=== PATIENT | female | born 1980 | race Hispanic/Latino ===

== ENCOUNTER 2022-07-10 10:12 | Emergency (ER) | payer BC, OTHER ==
--- OUTSIDE RECORDS SUMMARY | 2022-07-10 10:17 | XMS REPORT | Continuity of Care Document ---
:[address] [facility] t Address [address] [place] [address] Care Team Providers Name Role Phone DOCTOR UNASSIGNED, NO NAME Primary Care Physician Unavailabl e Joelle Duffy Attending Clinician Unavailable Joelle Duffy Attending Clinician Unavailable Lab, Adc Fam Pob I Attending Clinician Unavailable Ellen Ware Attending Clinician ELLEN TIPTON Attending Clinician Unavailable Doctor Unassigned, [place] Attending Clinician Unavailable Pob1, Acute Care Clinic Attending Clinician Unavailable Joelle Duffy Admitting Clinician Unavailable Payers Payer Name Policy Type Policy Number Effective Date Expiration Date S [facility] [id number] 2019 00:00:00 [facility] [id number] 2016 PPO 00:00:00 Problems Condition Condition Condition Status Onset Resolution Last Treating Co mments Source Name Details Category Date Date Treatment Clinician Date No known No known Disease Metho di active active st problems problems Hospit [facility] l Allergies, Adverse Reactions, Alerts Allergy Allergy Status Severity Reaction(s) Onset Inactive Treating Comm ents Source Name Type Date Date Clinician No Known DA Active U 2019-06 [facility] - Allergie 00:00: s 00 Unable DA Active U 2019-06 [facility] to 07-08 Assess 00:00: 00 No Known DA Active U 2019-06 [facility] 1-16 Allergie 00:00: s 00 NO KNOWN Drug Active Univers ALLERGIE Class [facility] [place] [facility] Family History Family Member Diagnosis Comments Start Date Stop Date Source Natural father Diabetes [facility] Natural [facility] Maternal grandfather St[facility] mother Cancer [facility] Natural mother Diabetes [facility] Social History Social Habit Start Date Stop Date Quantity Comments Source Exposure to Yes [facility] SARS-CoV-2 (event) [facility] Tobacco use and 2020-01-25 2020-01-25 Never used [facility] exposure 00:00:00 00:00:00 Medical Branch Alcohol intake 2019-07-05 2019-07-05 .71 /d [facility] 00:00:00 00:00:00 Alcohol Comment 2017-05-20 2017-05-20 socially [facility] 00:00:00 00:00:00 Medical Branch Sex Ass[birth year] At [birth year] [facility] 00:00:00 00:00:00 Smoking Status Start Date Stop Date Source Never smoker [facility] Medications Ordered Filled Start Stop Current Ordering Indication Dosage Frequency Signature Comments Components Source Medication Medication Date Date Medication? Clinician (SIG) Name Name bromphenira 2019- No [id number] 5mL Take 5 mL Univers mine-pseudo 01-24 by mouth 4 i ty of ephedrine-D 00:00: 04:59 (four) Gavin as M (BROMFED 00 :00 times Medical DM) 2-30-10 daily as Bran ch mg/5 mL needed for syrup Congestion /Allergies or Cough for up to 10 days. bromphenira 2019- No [id number] 5mL Take 5 mL Univers mine-pseudo 01-24 by mouth 4 i ty of ephedrine-D 00:00: 04:59 (four) Gavin as M (BROMFED 00 :00 times Medical DM) 2-30-10 daily as Bran ch mg/5 mL needed for syrup Congestion /Allergies or Cough for up to 10 days. bromphenira 2019- No [id number] 5mL Take 5 mL Univers mine-pseudo 01-24 by mouth 4 i ty of ephedrine-D 00:00: 04:59 (four) Gavin as M (BROMFED 00 :00 times Medical DM) 2-30-10 daily as Bran ch mg/5 mL needed for syrup Congestion /Allergies or Cough for up to 10 days. bromphenira 2020-0 2020- No [id number] [facility] i ty of ephedrine-D 00:00: 04:59 (four) Gavin as M (BROMFED 00 :00 times Medical DM) 2-30-10 daily as Bran ch mg/5 mL needed for syrup Congestion /Allergies or Cough for up to 10 days. methylPREDN 2020-0 2020- No [id number] Take by [facility] [employer] 01-24 mouth ity of mg tablets 00:00: 04:59 SEE-INSTRU [place] 00 :00 CTIONS for Medical 6 days. Branch follow package directions methylPREDN 2020-0 2020- No [id number] Take by [place] [address] 01-24 mouth ity of mg tablets 00:00: 04:59 SEE-INSTRU [place] 00 :00 CTIONS for Medical 6 days. Branch follow package directions methylPREDN 2020-0 2020- No [id number] [facility] mouth ity of mg tablets 00:00: 04:59 SEE-INSTRU [place] 00 :00 CTIONS for Medical 6 days. Branch follow package directions phentermine 2020-0 Yes TAKE ONE Un molly 37.5 mg 7-30 (1) ity of tablet 00:00: TABLET(S) [place] 00 BY MOUTH Medical ONCE A Branch DAY. phentermine 2020-0 Yes TAKE ONE Un molly 37.5 mg 7-30 (1) ity of tablet 00:00: TABLET(S) [place] 00 BY MOUTH Medical ONCE A Branch DAY. phentermine 2020-0 Yes TAKE ONE Un molly 37.5 mg 7-30 (1) ity of tablet 00:00: TABLET(S) [place] 00 BY MOUTH Medical ONCE A Branch DAY. phentermine 2020-0 Yes TAKE ONE Un molly 37.5 mg 7-30 (1) ity of tablet 00:00: TABLET(S) [place] 00 BY MOUTH Medical ONCE A Branch DAY. phentermine 2020-0 Yes TAKE ONE Un molly 37.5 mg 7-30 (1) ity of tablet 00:00: TABLET(S) [place] 00 BY MOUTH Medical ONCE A Branch DAY. phentermine Yes TAKE ONE Un molly 37.5 mg 7-30 (1) ity of tablet 00:00: TABLET(S) [place] 00 BY MOUTH Medical ONCE A Branch DAY. No known No No known Metho di medications 1-[address] 16:53: s [facility] 06 l acetaminoph 2016-06 Yes TAKE ONE Un molly en-codeine 1-02 (1) TO TWO ity of 300-30 mg 00:00: (2) [place] tablet 00 TABLET(S) Medical BY MOUTH Branch EVERY FOUR HOURS NEEDED FOR PAIN. acetaminoph 2016-06 Yes TAKE ONE Un molly en-codeine 1-02 (1) TO TWO ity of 300-30 mg 00:00: (2) [place] tablet 00 TABLET(S) Medical BY MOUTH Branch EVERY FOUR HOURS NEEDED FOR PAIN. acetaminoph 2016-06 Yes TAKE ONE Un molly en-codeine 1-02 (1) TO TWO ity of 300-30 mg 00:00: (2) [place] tablet 00 TABLET(S) Medical BY MOUTH Branch EVERY FOUR HOURS NEEDED FOR PAIN. acetaminoph 2016-06 Yes TAKE ONE Un molly en-codeine 1-02 (1) TO TWO ity of 300-30 mg 00:00: (2) [place] tablet 00 TABLET(S) Medical BY MOUTH Branch EVERY FOUR HOURS NEEDED FOR PAIN. acetaminoph 2016-06 Yes TAKE ONE Un molly en-codeine 1-02 (1) TO TWO ity of 300-30 mg 00:00: (2) [place] tablet 00 TABLET(S) Medical BY MOUTH Branch EVERY FOUR HOURS NEEDED FOR PAIN. acetaminoph 2016-06 Yes TAKE ONE Un molly en-codeine 1-02 (1) TO TWO ity of 300-30 mg 00:00: (2) [place] tablet 00 TABLET(S) Medical BY MOUTH Branch EVERY FOUR HOURS NEEDED FOR PAIN. meloxicam 2016-06 Yes TAKE ONE Univ ers 15 mg 0-10 (1) ity of tablet 00:00: TABLET(S) [place] 00 BY MOUTH Medical ONCE A DAY Branch WITH FOOD. meloxicam 2016-06 Yes TAKE ONE Univ ers 15 mg 0-10 (1) ity of tablet 00:00: TABLET(S) [place] 00 BY MOUTH Medical ONCE A DAY Branch WITH FOOD. meloxicam 2016-06 Yes TAKE ONE Univ ers 15 mg 0-10 (1) ity of tablet 00:00: TABLET(S) [place] 00 BY MOUTH Medical ONCE A DAY Branch WITH FOOD. meloxicam 2016-06 Yes TAKE ONE Univ ers 15 mg 0-10 (1) ity of tablet 00:00: TABLET(S) [place] 00 BY MOUTH Medical ONCE A DAY Branch WITH FOOD. meloxicam 2016-06 Yes TAKE ONE Univ ers 15 mg 0-10 (1) ity of tablet 00:00: TABLET(S) [place] 00 BY MOUTH Medical ONCE A DAY Branch WITH FOOD. meloxicam 2016-06 Yes TAKE ONE Univ ers 15 mg 0-10 (1) ity of tablet 00:00: TABLET(S) [place] 00 BY MOUTH Medical ONCE A DAY Branch WITH FOOD. Vital Signs Vital Name Observation Time Observation Value Comments Source Systolic blood 2020-01-25 21:07:00 118 mm[facility]Hg[facility] Diastolic blood 2020-01-25 21:07:00 72 mm[Hg[facility] Heart rate 2020-01-25 21:07:00 89 /min [facility] Body temperature 2020-01-25 21:07:00 36.89 [facility] Respiratory rate 2020-01-25 21:07:00 18 /min [facility] Body height 2020-01-25 21:07:00 165.1 cm [facility] Body weight 2020-01-25 21:07:00 91.627 kg [facility] BMI 2020-01-25 21:07:00 33.61 kg/m2 [facility] Oxygen saturation in 2020-01-25 21:07:00 99 /min University Arterial blood by [facility] Pulse oximetry Branch 02 Sat by Pulse 2020-09-20 15:50:53 100 /min Oximetry BMI more than 35 2020-09-20 15:50:53 Y Body Mass Index 2020-09-20 15:50:53 35.9 Height 2020-09-20 15:50:53 165.1\S\65 Pulse Rate 2020-09-20 15:50:53 97 /min Respiratory Rate 2020-09-20 15:50:53 16 /min Respiratory Depth 2020-09-20 15:50:53 Normal /min Respiratory Effort 2020-09-20 15:50:53 Spontaneous /min Respiratory Pattern 2020-09-20 15:50:53 Normal /min Temperature 2020-09-20 15:50:53 36.5\S\97.7 Weight 2020-09-20 15:50:53 83108.951\S\3456 Weight Measurement 2020-09-20 15:50:53 Standing Scale Method BMI more than 35 2020-07-28 13:18:23 Y Body Mass Index 2020-07-28 13:18:23 35.9 Height 2020-07-28 13:18:23 165.1\S\65 Pulse Rate 2020-07-28 13:18:23 97 /min Respiratory Rate 2020-07-28 13:18:23 16 /min Respiratory Depth 2020-07-28 13:18:23 Normal /min Respiratory Effort 2020-07-28 13:18:23 Spontaneous /min Respiratory Pattern 2020-07-28 13:18:23 Normal /min Temperature 2020-07-28 13:18:23 36.5\S\97.7 Weight 2020-07-28 13:18:23 80663.951\S\3456 Weight Measurement 2020-07-28 13:18:23 Standing Scale Method 02 Sat by Pulse 2020-07-28 13:18:23 100 /min Oximetry 02 Sat by Pulse 2020-06-22 16:04:46 100 /min Oximetry BMI more than 35 2020-06-22 16:04:46 Y Body Mass Index 2020-06-22 16:04:46 35.9 Height 2020-06-22 16:04:46 165.1\S\65 Pulse Rate 2020-06-22 16:04:46 97 /min Respiratory Rate 2020-06-22 16:04:46 16 /min Respiratory Depth 2020-06-22 16:04:46 Normal /min Respiratory Effort 2020-06-22 16:04:46 Spontaneous /min Respiratory Pattern 2020-06-22 16:04:46 Normal /min Temperature 2020-06-22 16:04:46 36.5\S\97.7 Weight 2020-06-22 16:04:46 27148.951\S\3456 Weight Measurement 2020-06-22 16:04:46 Standing Scale Method 02 Sat by Pulse 2020-06-15 10:58:10 100 /min Oximetry BMI more than 35 2020-06-15 10:58:10 Y Body Mass Index 2020-06-15 10:58:10 35.9 Height 2020-06-15 10:58:10 165.1\S\65 Pulse Rate 2020-06-15 10:58:10 97 /min Respiratory Rate 2020-06-15 10:58:10 16 /min Respiratory Depth 2020-06-15 10:58:10 Normal /min Respiratory Effort 2020-06-15 10:58:10 Spontaneous /min Respiratory Pattern 2020-06-15 10:58:10 Normal /min Temperature 2020-06-15 10:58:10 36.5\S\97.7 Weight 2020-06-15 10:58:10 84941.951\S\3456 Weight Measurement 2020-06-15 10:58:10 Standing Scale Method BMI more than 35 2020-06-12 15:42:50 Y Body Mass Index 2020-06-12 15:42:50 35.9 Height 2020-06-12 15:42:50 165.1\S\65 Pulse Rate 2020-06-12 15:42:50 97 /min Respiratory Rate 2020-06-12 15:42:50 16 /min Respiratory Depth 2020-06-12 15:42:50 Normal /min Respiratory Effort 2020-06-12 15:42:50 Spontaneous /min Respiratory Pattern 2020-06-12 15:42:50 Normal /min Temperature 2020-06-12 15:42:50 36.5\S\97.7 Weight 2020-06-12 15:42:50 69522.951\S\3456 Weight Measurement 2020-06-12 15:42:50 Standing Scale Method 02 Sat by Pulse 2020-06-12 15:42:50 100 /min Oximetry Body Mass Index 2020-06-07 12:38:24 35.9 Height 2020-06-07 12:38:24 165.1\S\65 Pulse Rate 2020-06-07 12:38:24 97 /min Respiratory Rate 2020-06-07 12:38:24 16 /min Respiratory Depth 2020-06-07 12:38:24 Normal /min Respiratory Effort 2020-06-07 12:38:24 Spontaneous /min Respiratory Pattern 2020-06-07 12:38:24 Normal /min Temperature 2020-06-07 12:38:24 36.5\S\97.7 Weight 2020-06-07 12:38:24 09466.951\S\3456 Weight Measurement 2020-06-07 12:38:24 Standing Scale Method 02 Sat by Pulse 2020-06-07 12:38:23 100 /min Oximetry BMI more than 35 2020-06-07 12:38:23 Y Body Mass Index 2020-06-07 12:38:23 35.9 Height 2020-06-07 12:38:23 165.1\S\65 Pulse Rate 2020-06-07 12:38:23 97 /min Respiratory Rate 2020-06-07 12:38:23 16 /min Respiratory Depth 2020-06-07 12:38:23 Normal /min Respiratory Effort 2020-06-07 12:38:23 Spontaneous /min Respiratory Pattern 2020-06-07 12:38:23 Normal /min Temperature 2020-06-07 12:38:23 36.5\S\97.7 Weight 2020-06-07 12:38:23 39721.951\S\3456 Weight Measurement 2020-06-07 12:38:23 Standing Scale Method 02 Sat by Pulse 2020-06-07 06:38:37 100 /min Oximetry Body Mass Index 2020-06-07 06:38:37 35.9 Height 2020-06-07 06:38:37 165.1\S\65 Pulse Rate 2020-06-07 06:38:37 88 /min Respiratory Rate 2020-06-07 06:38:37 18 /min Temperature 2020-06-07 06:38:37 36.9\S\98.4 Weight 2020-06-07 06:38:37 12097.951\S\3456 Weight Measurement 2020-06-07 06:38:37 Standing Scale Method 02 Sat by Pulse 2020-06-07 06:23:19 100 /min Oximetry Body Mass Index 2020-06-07 06:23:19 35.9 Height 2020-06-07 06:23:19 165.1\S\65 Pulse Rate 2020-06-07 06:23:19 88 /min Respiratory Rate 2020-06-07 06:23:19 18 /min Temperature 2020-06-07 06:23:19 36.9\S\98.4 Weight 2020-06-07 06:23:19 28522.951\S\3456 Weight Measurement 2020-06-07 06:23:19 Standing Scale Method WEIGHT 2020-06-07 06:21:00 97.004164 kg HEIGHT 2020-06-07 06:21:00 165.1 cm Body Mass Index 2020-06-06 08:12:29 34.6 Height 2020-06-06 08:12:29 165.1\S\65 Weight 2020-06-06 08:12:29 92345.213\S\3328 WEIGHT 2020-05-30 12:22:00 94.916898 kg HEIGHT 2020-05-30 12:22:00 165.1 cm Procedures This patient has no known procedures. Plan of Care Planned Activity Planned Date Details Comments Source Future Scheduled 2022-06-09 COVID-19 VACCINE [facility] Test 18:49:40 (#1) [code = COVID-19 VACCINE (#1)] Future Scheduled 2022-06-09 Hepatitis C [facility] Test 18:49:40 screening (procedure) [code = 219748365] Future Scheduled 2022-06-09 Screening for [facility] Test 18:49:40 malignant neoplasm of cervix (procedure) [code = 829812578] Future Scheduled 2022-06-09 BREAST CANCER [facility] Test 18:49:40 SCREENING [code = BREAST CANCER SCREENING] Future Scheduled 2022-06-09 INFLUENZA VACCINE [facility] Test 18:49:40 [code = INFLUENZA VACCINE] Encounters Start End Encounter Admission Attending Care Care Encounter Source Date/Time Date/Time Type Type Clinicians Facility Department ID 2020-05-09 Inpatient Elective Clive [facility] [id number] [facility] 10:45:00 [facility] 65 2020-05-09 Inpatient Elective Clive [facility] [id number] [facility] 08:00:00 [facility] 2020-04-27 Inpatient Clive [facility] [id number] S t. 15:10:00 [facility] 2020-09-09 2020-09-09 Outpatient [facility] [id number] Univers 13:45:00 13:45:00 ity [facility] 2020-08-19 2020-08-19 Outpatient [facility] [id number] Univers 13:10:00 13:10:00 ity [facility] 2020-06-07 2020-06-07 Outpatient Wijay, [facility] [id number] [facility] 09:15:00 09:15:00 Nandhika 87 2020-06-07 2020-06-07 Outpatient [facility] [id number] [facility] 05:03:00 05:03:00 87 2020-06-07 2020-06-07 Outpatient Wijay, [facility] [id number] [facility] 03:00:00 03:00:00 Nandhika 37 2020-06-02 2020-06-02 Laboratory Lab, Adc Fam Pob I [facility] [id number] [facility] 09:01:19 09:21:19 [facility] [id number] [facility] [id number] Gavin as Professio [phone] [address] Office [address] One 2020-06-02 2020-06-02 Outpatient Bree ERWINTAHIR [facility] [id number] Univers 09:00:00 09:00:00 [facility] 2020-05-30 2020-05-30 Outpatient Elective Wijay, [facility] [id number] [facility] 11:57:00 11:57:00 Nandhika 04 2020-05-30 2020-05-30 Outpatient [facility] [id number] [facility] 11:57:00 11:57:00 04 2020-05-01 2020-05-01 Outpatient Elective Wijay, [facility] [id number] [facility] 13:21:00 13:21:00 Nandhika 21 2020-05-01 2020-05-01 Outpatient [facility] [id number] [facility] 13:21:00 13:21:00 21 2020-02-01 2020-02-01 Telephone Doctor ENEDELIA [id number] Univers 00:00:00 00:00:00 Unassigned, POLLY [id number] ity of [place] [facility] [id number] Gavin as [phone] [address] 2020-01-28 2020-01-28 Laboratory Lab, Adc Fam Pob I [facility] 1.2. [id number] Univers 15:52:01 16:12:01 Only Ellen Tipton gamigo [id number] ity of [place] [id number] Gavin as Professio [phone] [address] Office [address] [facility] 2020-01-28 2020-01-28 Outpatient R [facility] [id number] Univers 15:40:00 15:40:00 ity of [facility] 2020-01-25 2020-01-25 Urgent Pob1, Acute Care Clinic [facility] [id number]. [id number] Univers 15:54:24 16:14:24 Care Ellen Tipton gamigo [id number] ity of [place] [id number] Gavin as Professio [phone] [address] Office [address] [facility] 2020-01-25 2020-01-25 Outpatient R NEGRA [facility] [id number] Univers 16:00:00 16:00:00 ELLEN ity [facility] 2020-01-25 2020-01-25 Letter Doctor ENEDELIA [id number] Univers 00:00:00 00:00:00 (Out) Unassigned, POLLY [id number] ity of [place] [facility] [id number] Gavin as [phone] [address] 2016-11-19 2016-11-19 Outpatient MHIE MHIE [id number] [facility] 10:20:00 10:20:00 08 cortney Asencio 2016-11-05 2016-11-05 Outpatient MHIE MHIE [id number] [facility] 08:00:00 08:00:00 07 cortney Asencio 2016-08-14 2016-08-14 Outpatient MHIE MHIE [id number] [facility] 08:30:00 08:30:00 06 cortney Asencio 2015-09-29 2015-09-29 Outpatient KWABENA YUAN [id number] [facility] 10:00:00 10:00:00 03 cortney Asencio 2015-09-29 2015-09-29 Outpatient KWABENA YUAN [id number] [facility] 10:00:00 10:00:00 05 cortney Asencio 2015-09-20 2015-09-20 Outpatient KWABENA YUAN [id number] [facility] 13:00:00 13:00:00 04 cortney Asencio 2015-08-18 2015-08-18 Outpatient KWABENA YUAN [id number] [facility] 10:00:00 10:00:00 02 cortney Asencio 2015-06-20 2015-06-20 Outpatient KWABENA YUAN [id number] [facility] 14:00:00 14:00:00 cortney Asencio Results Test Description Test Time Test Comments Results Result Comments Source HCG, Urine Qual (LAB) 2020-06-07 06:30:00 Test Item Value Reference Range Interpretation Comme nts HCG, Urine, Qual (test code = HCGU) Negative Negative Complete Blood Count Auto [id number] 12:25:00 Test Item Value Reference Range Interpretation Comments White Blood Count (test code = 5.5 x10 3/uL 4.4-10.5 N WBCT) Red Blood Count (test code = 4.66 x10 6/uL 3.75-5.20 N RBC) Hemoglobin (test code = HGBT) 10.8 g/dL 12.2-14.8 L Hematocrit (test code = HCTT) 37.2 % 36.5-44.4 N Mean Corpuscular Volume (test 79.80 fL 80.00-100.00 L code = MCV) Mean Corpuscular Hemoglobin 23.2 pg 27.0-32.5 L (test code = MCH) Mean Corpuscular HGB Conc 29.00 g/dL 32.00-37.50 L (test code = MCHC) RDW Coefficient of Variation 24.4 % 11.5-14.5 H (test code = RDWCV) Platelet Count (test code = 363.0 x10 3/uL 140.0-440.0 N PLTT) Mean Platelet Volume (test 11.1 fL code = MPV) Immature Granulocytes % (Auto) 0.4 % 0.0-5.0 N (test code = IMMGRAN%) Neutrophils % (Auto) (test 65.3 % 36.0-70.0 N code = NE%) Lymphocytes % (Auto) (test 24.5 % 12.0-44.0 N code = LY%) Monocytes % (Auto) (test code 8.4 % 0.0-11.0 N = MO%) Eosinophils % (Auto) (test 0.7 % 0.0-7.0 N code = EO%) Basophils % (Auto) (test code 0.7 % 0.0-2.0 N = BA%) Immature Granulocytes # (Auto) 0.02 x10 3/uL (test code = IMMGRAN#) Neutrophils # (Auto) (test 3.6 x10 3/uL 1.6-7.4 N code = NE#) Lymphocytes # (Auto) (test 1.34 x10 3/uL 0.50-4.60 N code = LY#) Monocytes # (Auto) (test code 0.46 x10 3/uL 0.00-1.20 N = MO#) Eosinophils # (Auto) (test 0.04 x10 3/uL 0.00-0.74 N code = EO#) Basophils # (Auto) (test code 0.04 x10 3/uL 0.00-0.21 N = BA#) nRBC Abs (test code = NRBCA) 0 nRBC Pct (test code = NRBCP) 0 % Basic Metabolic [id number] 12:25:00 Test Item Value Reference Range Interpretation Comments SODIUM (test code = NA) 139.0 mmol/L 136.0-145.0 N Potassium,K (test code = K) 3.8 mmol/L 3.0-5.1 N Chloride (test code = CL) 106 mmol/L 98-107 N Carbon Dioxide (test code = 28 mmol/L 20-31 N CO2) Anion Gap (test code = GAP) 5 mmol/L 5-15 N Blood Urea Nitrogen (test code 9 mg/dL 9-23 N = BUN) Creatinine (test code = CREATT) 0.63 mg/dL 0.55-1.02 N Creatinine Clr Calc Pharmacy 134.81 mL/min (test code = CRCLPHA) Estimated GFR ( Marielle > 60 mL/min/1.73m2 (test code = EGFRAA) Estimated GFR (Non Afr Marielle > 60 mL/min/1.73m2 (test code = EGFRNAA) BUN/Creatinine Ratio (test code 14 ratio 10-20 N = BCRATIO) Glucose (test code = GLU) 89 mg/dL 74-106 N Osmolality,Calculated (test 285.2 code = OSMOC) Calcium (test code = CA) 9.0 mg/dL 8.3-10.6 N Complete Blood Count Auto [id number] 14:15:00 Test Item Value Reference Range Interpretation Comments White Blood Count (test code = 9.2 x10 3/uL 4.4-10.5 N WBCT) Red Blood Count (test code = 4.52 x10 6/uL 3.75-5.20 N RBC) Hemoglobin (test code = HGBT) 9.6 g/dL 12.2-14.8 L Hematocrit (test code = HCTT) 33.2 % 36.5-44.4 L Mean Corpuscular Volume (test 73.50 fL 80.00-100.00 L code = MCV) Mean Corpuscular Hemoglobin 21.2 pg 27.0-32.5 L (test code = MCH) Mean Corpuscular HGB Conc 28.90 g/dL 32.00-37.50 L (test code = MCHC) RDW Coefficient of Variation 19.5 % 11.5-14.5 H (test code = RDWCV) Platelet Count (test code = 484.0 x10 3/uL 140.0-440.0 H PLTT) Mean Platelet Volume (test 11.8 fL code = MPV) Immature Granulocytes % (Auto) 0.4 % 0.0-5.0 N (test code = IMMGRAN%) Neutrophils % (Auto) (test 71.7 % 36.0-70.0 H code = NE%) Lymphocytes % (Auto) (test 19.2 % 12.0-44.0 N code = LY%) Monocytes % (Auto) (test code 7.1 % 0.0-11.0 N = MO%) Eosinophils % (Auto) (test 0.8 % 0.0-7.0 N code = EO%) Basophils % (Auto) (test code 0.8 % 0.0-2.0 N = BA%) Immature Granulocytes # (Auto) 0.04 x10 3/uL (test code = IMMGRAN#) Neutrophils # (Auto) (test 6.6 x10 3/uL 1.6-7.4 N code = NE#) Lymphocytes # (Auto) (test 1.76 x10 3/uL 0.50-4.60 N code = LY#) Monocytes # (Auto) (test code 0.65 x10 3/uL 0.00-1.20 N = MO#) Eosinophils # (Auto) (test 0.07 x10 3/uL 0.00-0.74 N code = EO#) Basophils # (Auto) (test code 0.07 x10 3/uL 0.00-0.21 N = BA#) Basic Metabolic [id number] 14:15:00 Test Item Value Reference Range Interpretation Comments SODIUM (test code = NA) 139.0 mmol/L 136.0-145.0 N Potassium,K (test code = K) 4.1 mmol/L 3.0-5.1 N Chloride (test code = CL) 106 mmol/L 98-107 N Carbon Dioxide (test code = 27 mmol/L 20-31 N CO2) Anion Gap (test code = GAP) 6 mmol/L 5-15 N Blood Urea Nitrogen (test code 16 mg/dL 9-23 N = BUN) Creatinine (test code = CREATT) 0.63 mg/dL 0.55-1.02 N Creatinine Clr Calc Pharmacy 133.79 mL/min (test code = CRCLPHA) Estimated GFR ( Marielle > 60 mL/min/1.73m2 (test code = EGFRAA) Estimated GFR (Non Afr Marielle > 60 mL/min/1.73m2 (test code = EGFRNAA) BUN/Creatinine Ratio (test code 25 ratio 10-20 H = BCRATIO) Glucose (test code = GLU) 76 mg/dL 74-106 N Osmolality,Calculated (test 287.7 code = OSMOC) Calcium (test code = CA) 8.9 mg/dL 8.3-10.6 N
[2022-07-10] MEDS ORDERED: IBUPROFEN 200 MG TAB PO ONE (11:29)
[2022-07-10] MEDS ORDERED: ACETAMINOPHEN 500 MG TAB ONE (11:32)
--- NOTE | 2022-07-10 12:05 | RAD REPORT ---
EXAM DESCRIPTION: Amadou Single View07/10/2022 11:46 am CLINICAL HISTORY: Fever COMPARISON: none FINDINGS: The lungs appear clear of acute infiltrate. The heart is normal size IMPRESSION: No acute abnormalities displayed
[2022-07-10 12:22] LABS: SARS-COV-2 RT PCR POSITIVE (NEGATIVE)
--- NOTE | 2022-07-10 12:41 | ER ---
Nurse's Notes [facility] Name: Anastacia Adorno Age: 41 yrs Sex: Female : 1980 Arrival Date: 07/10/2022 Time: 10:14 Bed 12 Private MD: Diagnosis: Coronavirus infection, unspecified Presentation: 07/10 10:56 Chief complaint: Patient states: cough, headache, body aches since yesterday , fever. iw Coronavirus screen: Client presents with at least one sign or symptom that may indicate coronavirus-19. Ebola Screen: Patient negative for fever greater than or equal to 101.5 degrees Fahrenheit, and additional compatible Ebola Virus Disease symptoms Patient denies exposure to infectious person. Patient denies travel to an Ebola-affected area in the 21 days before illness onset. No symptoms or risks identified at this time. Initial Sepsis Screen: Does the patient meet any 2 criteria? No. Patient's initial sepsis screen is negative. Does the patient have a suspected source of infection? No. Patient's initial sepsis screen is negative. Risk Assessment: Do you want to hurt yourself or someone else? Patient reports no desire to harm self or others. Onset of symptoms was July 09, 2022. 10:56 Method Of Arrival: Ambulatory iw 10:56 Acuity: DAYANA 4 iw 10:56 Acuity: DAYANA 3 iw Historical: - Allergies: 10:57 No Known Allergies; iw - Home Meds: 10:57 None [Active]; iw - PMHx: 10:58 Crohn's disease; iw - Immunization history:: Adult Immunizations unknown. - Social history:: Smoking status: unknown. Screenin:19 [facility] ED Fall Risk Assessment (Adult) History of falling in the last 3 months, jl7 including since admission No falls in past 3 months (0 pts). Abuse screen: Denies threats or abuse. Denies injuries from another. Nutritional screening: No deficits noted. Tuberculosis screening: No symptoms or risk factors identified. Vital Signs: 10:56 BP 110 / 70; Pulse 124; Resp 18; Temp 100.6; Pulse Ox 100% on R/A; Weight 68.04 kg; iw Height 5 ft. 3 in. (160.02 cm); 10:56 Body Mass Index 26.57 (68.04 kg, 160.02 cm) ED Course: 10:14 Patient arrived in ED. am2 10:17 Tyrone Rizo PA is PHCP. [facility] 10:17 Young Mendez MD is Attending Physician. [facility] 10:57 Triage completed. iw 10:57 Arm band placed on. iw 11:12 Katherine Cummings, RN is Primary Nurse. iw 11:47 Chest Single View XRAY In Process Unspecified. EDMS 13:19 Patient has correct armband on for positive identification. jl7 13:19 No provider procedures requiring assistance completed. Patient did not have IV access jl7 during this emergency room visit. Administered Medications: 11:27 Not Given (Patient Refused): Ibuprofen 600 mg PO once iw 11:34 Drug: Tylenol 1000 mg Route: PO; iw 12:15 Follow up: Response: No adverse reaction iw Medication: 13:19 VIS not applicable for this client. jl7 Outcome: 12:41 Discharge ordered by MD. m 13:19 Discharged to home ambulatory, with significant other. jl7 13:19 Condition: stable 13:19 Discharge instructions given to patient, significant other, Instructed on discharge instructions, follow up and referral plans. medication usage, Demonstrated understanding of instructions, follow-up care, medications, Prescriptions given X 2. 13:20 Patient left the ED. jl7 Signatures: Dispatcher [employer] EDMS Tyrone Rizo PA PA Katherine Washburn, RN RN Nathanael King RN RN jl7 Lakisha Haq am2 Corrections: (The following items were deleted from the chart) 10:58 10:57 PMHx: None; iw
--- NOTE | 2022-07-10 12:41 | EDPHYS ---
Physician Documentation [facility] Name: Anastacia Adorno Age: 41 yrs Sex: Female : 1980 Arrival Date: 07/10/2022 Time: 10:14 Bed 12 Private MD: ED Physician Young Mendez HPI: 07/10 12:39 This 41 yrs old Female presents to ER via Ambulatory with complaints of Cough, jmm Flu Symptoms. 12:39 The patient or guardian reports cough. Onset: The symptoms/episode began/occurred jmm gradually, 1 day(s) ago. Modifying factors: The symptoms are alleviated by nothing, the symptoms are aggravated by nothing. Associated signs and symptoms: Pertinent positives:. The patient has not experienced similar symptoms in the past. Is a 41-year-old female with history of Crohn's disease the presents emerged from with complaints of cough, shortness of breath beginning last night with fever. Denies any vomiting but states having some nausea. Denies abdominal pain. states having cough and congestion as well.. Historical: - Allergies: 10:57 No Known Allergies; iw - Home Meds: 10:57 None [Active]; iw - PMHx: 10:58 Crohn's disease; iw - Immunization history:: Adult Immunizations unknown. - Social history:: Smoking status: unknown. ROS: 12:39 Constitutional: Positive for fever. jmm 12:39 Respiratory: Positive for cough, shortness of breath. 12:39 All other systems are negative. Exam: 12:39 Constitutional: This is a well developed, well nourished patient who is awake, alert, jmm and in no acute distress. Head/Face: atraumatic. Eyes: EOMI, no conjunctival erythema appreciated 12:39 Neck: Trachea midline, Supple Chest/axilla: Normal chest wall appearance and motion. Cardiovascular: Regular rate and rhythm. No edema appreciated Respiratory: Normal respirations, no respiratory distress appreciated Abdomen/GI: Non distended Back: Normal ROM Skin: General appearance color normal MS/ Extremity: Moves all extremities, no obvious deformities appreciated, no edema noted to the lower extremities Neuro: Awake and alert Psych: Behavior is normal, Mood is normal, Patient is cooperative and pleasant 12:39 ENT: Posterior pharynx: erythema, that is moderate. Vital Signs: 10:56 BP 110 / 70; Pulse 124; Resp 18; Temp 100.6; Pulse Ox 100% on R/A; Weight 68.04 kg; iw Height 5 ft. 3 in. (160.02 cm); 10:56 Body Mass Index 26.57 (68.04 kg, 160.02 cm) iw MDM: 11:07 Patient medically screened. [facility] 12:40 Data reviewed: vital signs, nurses notes. I considered the following discharge [facility] prescriptions or medication management in the emergency department Medications were administered in the Emergency Department. See MAR. Historians other than the Patient: Spouse/Significant Other: Significant other. Counseling: I had a detailed discussion with the patient and/or guardian regarding: the historical points, exam findings, and any diagnostic results supporting the discharge/admit diagnosis, lab results, the need for outpatient follow up, to return to the emergency department if symptoms worsen or persist or if there are any questions or concerns that arise at home. 07/10 11:07 Order name: COVID-19/FLU A+B; Complete Time: 12:26 [facility] 07/10 11:07 Order name: Chest Single View XRAY; Complete Time: 12:06 [facility] Administered Medications: 11:27 Not Given (Patient Refused): Ibuprofen 600 mg PO once iw 11:34 Drug: Tylenol 1000 mg Route: PO; iw 12:15 Follow up: Response: No adverse reaction iw Disposition: 13:23 Co-signature as Attending Physician, Young Mendez MD I reviewed the patient's care rt provided by the Advanced Practice Provider and agree with the diagnosis and treatment plan. Disposition Summary: 07/10/22 12:41 Discharge Ordered Location: Home [facility] Condition: Stable [facility] Diagnosis - Coronavirus infection, unspecified [facility] Followup: [facility] - With: Private Physician - When: 2 - 3 days - Reason: Recheck today's complaints, Continuance of care, Re-evaluation by your physician Discharge Instructions: - Discharge Summary Sheet [facility] Forms: - Medication Reconciliation Form [facility] - Thank You Letter [facility] - Antibiotic Education [facility] - Prescription Opioid Use [facility] - Work release form jl7 Prescriptions: - promethazine-DM - take 10 milliliter by ORAL route every 4 hours; 200 milliliter; Refills: 0, [facility] Product Selection Permitted - albuterol sulfate 90 mcg/actuation Inhalation HFA aerosol inhaler - inhale 2 puff by INHALATION route every 4 hours; 1 Pump; Refills: 0, Product jmm Selection Permitted Signatures: Dispatcher [employer] EDTyrone Escobar PA PA jmm Williams, Irene, RN RN iw Nathanael King RN RN jl7 Young Mendez MD MD rt Corrections: (The following items were deleted from the chart) 10:58 10:57 PMHx: None; saul hughes
[2022-07-10 13:34] VITALS: BP 110/70; TEMP 100.6; O2SAT 100
== END 2022-07-10 13:20 | disposition home or self-care (01) ==
LOC: ER 10:12
DX: U07.1 COVID-19 (principal)
CPT/HCPCS: 0240U; 71045

== ENCOUNTER 2022-12-15 17:58 | Emergency (ER) | payer BC ==
--- OUTSIDE RECORDS SUMMARY | 2022-12-15 18:01 | XMS REPORT | Continuity of Care Document ---
:1980 Author Organization [facility] t Address [address] [place] [address] [address] [place] [address] Care Team Providers Name Role Phone Asked, No Pcp Primary Care Physician Unavailable Joelle Duffy Attending Clinician Unavailable Joelle Duffy Attending Clinician Unavailable Lab, Adc Fam Pob I Attending Clinician Unavailable Charlee Ware Attending Clinician CHARLEE TIPTON Attending Clinician Unavailable Doctor Unassigned, [place] Attending Clinician Unavailable Pob1, Acute Care Clinic Attending Clinician Unavailable Joelle Duffy Admitting Clinician Unavailable Payers Payer Name Policy Type Policy Number Effective Date Expiration Date S [facility] [id number] 2019 00:00:00 [facility] [id number] 2016 PPO 00:00:00 Problems Condition Condition Condition [...] Known DA Active U 2019-06 [facility] 2-22 Allergie 00:00: s 00 Unable DA Active U 2019-06 [facility] to - Assess 00:00: 00 No Known DA Active U 2019-06 [facility] 1-16 Allergie 00:00: s 00 NO KNOWN Drug Active Univers ALLERGIE Class ity of S [facility] Family History Family Member Diagnosis Comments Start Date Stop Date Source Natural father Diabetes [facility] Natural father Kidney disease Method [facility] Maternal grandfather [facility]roke [facility] Natural mother Cancer [facility] Natural mother Diabetes [facility] Social History Social Habit Start Date Stop Date Quantity Comments Source Exposure to Yes [facility] SARS-CoV-2 (event) [facility] Gender identity [facility] Sexual orientation Method [facility] Tobacco use and 2020-01-25 2020-01-25 Never used Universit y of exposure 00:00:00 00:00:00 [facility] Alcohol intake 2019-07-05 2019-07-05 .71 /d [facility] 00:00:00 00:00:00 History of Social 2019-07-05 2019-07-05 [facility] function 00:00:00 00:00:00 Alcohol Comment 2017-05-20 2017-05-20 socially Universit y of 00:00:00 00:00:00 [facility] Sex Ass[birth year] At [birth year] [facility] 00:00:00 00:00:00 Smoking Status Start Date Stop Date Source Never smoker [facility] Medications Ordered Filled Start Stop Current Ordering Indication Dosage Frequency Signature Comments Components Source Medication Medication Date Date Medication? Clinician (SIG) Name Name bromphenira 2019- No [id number] 5mL Take 5 mL Univers mine-pseudo 01-24 by mouth 4 i ty of ephedrine-D 00:00: 04:59 (four) Gavin as M (BROMFED 00 :00 times Medical DM) 2-30-10 daily as Bran ch mg/5 mL needed for syrup Congestion /Allergies or Cough for up to 10 days. bromphenira 2019- No [id number] 5mL Take 5 mL Univers mine-pseudo 01-24 by mouth 4 i ty of ephedrine-D 00:00: 04:59 (four) Gavin as M (BROMFED 00 :00 times Medical DM) 2-30-10 daily as Bran ch mg/5 mL needed for syrup Congestion /Allergies or Cough for up to 10 days. bromphenira 2019- No [id number] 5mL Take 5 mL Univers mine-pseudo 01-24 by mouth 4 i ty of ephedrine-D 00:00: 04:59 (four) Gavin as M (BROMFED 00 :00 times Medical DM) 2-30-10 daily as Bran ch mg/5 mL needed for syrup Congestion /Allergies or Cough for up to 10 days. bromphenira 2020-0 2020- No [id number] 5mL Take 5 mL [facility] 01-24 by mouth 4 i ty of ephedrine-D 00:00: 04:59 (four) Gavin as M (BROMFED 00 :00 times Medical DM) 2-30-10 daily as Bran ch mg/5 mL needed for syrup Congestion /Allergies or Cough for up to 10 days. methylPREDN 2020-0 2020- No [id number] Take by [place] [id number] 01-2418 mouth ity of mg tablets 00:00: 04:59 SEE-INSTRU [place] 00 :00 CTIONS for Medical 6 days. Branch follow package directions methylPREDN 2020-0 2020- No [id number] Take by [place] [id number] 01-24 mouth ity of mg tablets 00:00: 04:59 SEE-INSTRU [place] 00 :00 CTIONS for Medical 6 days. Branch follow package directions methylPREDN 2020-0 2020- No [id number] Take by [place] [id number] 01-24 mouth ity of mg tablets 00:00: 04:59 SEE-INSTRU [place] 00 :00 CTIONS for Medical 6 days. Branch follow package directions phentermine 2020-0 Yes TAKE ONE Un molly 37.5 mg 7-30 (1) ity of tablet 00:00: TABLET(S) [place] BY MOUTH Medical ONCE A Branch DAY. phentermine 2020-0 Yes TAKE ONE Un molly 37.5 mg 7-30 (1) ity of tablet 00:00: TABLET(S) [place] BY MOUTH Medical ONCE A Branch DAY. phentermine 2020-0 Yes TAKE ONE Un molly 37.5 mg 7-30 (1) ity of tablet 00:00: TABLET(S) [place] BY MOUTH Medical ONCE A Branch DAY. phentermine 2020-0 Yes TAKE ONE Un molly 37.5 mg 7-30 (1) ity of tablet 00:00: TABLET(S) [place] BY MOUTH Medical ONCE A Branch DAY. phentermine 2020-0 Yes TAKE ONE Un molly 37.5 mg 7-30 (1) ity of tablet 00:00: TABLET(S) [place] 00 BY MOUTH Medical ONCE A Branch DAY. phentermine 2020-0 Yes TAKE ONE Un molly 37.5 mg 7-30 (1) ity of tablet 00:00: TABLET(S) [place] 00 BY MOUTH Medical ONCE A Branch DAY. No known 2020-0 No No known Metho di medications 1-20 [...] Source Systolic blood 2020-01-25 21:07:00 118 mm[Hg[facility] Diastolic blood 2020-01-25 21:07:00 72 mm[Hg] [facility] Heart rate 2020-01-25 21:07:00 89 /min [facility] Body temperature 2020-01-25 21:07:00 36.89 Venus [facility] Respiratory rate 2020-01-25 21:07:00 18 /min [facility] Body height 2020-01-25 21:07:00 165.1 cm [facility] Body weight 2020-01-25 21:07:00 91.627 kg [facility] BMI 2020-01-25 21:07:00 33.61 kg/m2 [facility] Oxygen saturation in 2020-01-25 21:07:00 99 /min [facility] Arterial blood by [facility] Pulse oximetry Branch 02 Sat by [...] Temperature 2020-09-20 15:50:53 36.5\S\97.7 Weight 2020-09-20 15:50:53 11336.951\S\3456 Weight Measurement 2020-09-20 15:50:53 Standing Scale Method BMI more than 35 2020-07-28 13:18:23 Y Body Mass Index 2020-07-28 13:18:23 35.9 Height 2020-07-28 13:18:23 165.1\S\65 Pulse Rate 2020-07-28 13:18:23 97 /min Respiratory Rate 2020-07-28 13:18:23 16 /min Respiratory Depth 2020-07-28 13:18:23 Normal /min Respiratory Effort 2020-07-28 13:18:23 Spontaneous /min Respiratory Pattern 2020-07-28 13:18:23 Normal /min Temperature 2020-07-28 13:18:23 36.5\S\97.7 Weight 2020-07-28 13:18:23 23169.951\S\3456 Weight Measurement 2020-07-28 13:18:23 Standing Scale Method [...] Temperature 2020-06-22 16:04:46 36.5\S\97.7 Weight 2020-06-22 16:04:46 77331.951\S\3456 Weight Measurement 2020-06-22 16:04:46 Standing Scale Method [...] Temperature 2020-06-15 10:58:10 36.5\S\97.7 Weight 2020-06-15 10:58:10 73288.951\S\3456 Weight Measurement 2020-06-15 10:58:10 Standing Scale Method BMI more than 35 2020-06-12 15:42:50 Y Body Mass Index 2020-06-12 15:42:50 35.9 Height 2020-06-12 15:42:50 165.1\S\65 Pulse Rate 2020-06-12 15:42:50 97 /min Respiratory Rate 2020-06-12 15:42:50 16 /min Respiratory Depth 2020-06-12 15:42:50 Normal /min Respiratory Effort 2020-06-12 15:42:50 Spontaneous /min Respiratory Pattern 2020-06-12 15:42:50 Normal /min Temperature 2020-06-12 15:42:50 36.5\S\97.7 Weight 2020-06-12 15:42:50 05537.951\S\3456 Weight Measurement 2020-06-12 15:42:50 Standing Scale Method 02 Sat by Pulse 2020-06-12 15:42:50 100 /min Oximetry Body Mass Index 2020-06-07 12:38:24 35.9 Height 2020-06-07 12:38:24 165.1\S\65 Pulse Rate 2020-06-07 12:38:24 97 /min Respiratory Rate 2020-06-07 12:38:24 16 /min Respiratory Depth 2020-06-07 12:38:24 Normal /min Respiratory Effort 2020-06-07 12:38:24 Spontaneous /min Respiratory Pattern 2020-06-07 12:38:24 Normal /min Temperature 2020-06-07 12:38:24 36.5\S\97.7 Weight 2020-06-07 12:38:24 25647.951\S\3456 Weight Measurement 2020-06-07 12:38:24 Standing Scale Method [...] Temperature 2020-06-07 12:38:23 36.5\S\97.7 Weight 2020-06-07 12:38:23 08053.951\S\3456 Weight Measurement 2020-06-07 12:38:23 Standing Scale Method 02 Sat by Pulse 2020-06-07 06:38:37 100 /min Oximetry Body Mass Index 2020-06-07 06:38:37 35.9 Height 2020-06-07 06:38:37 165.1\S\65 Pulse Rate 2020-06-07 06:38:37 88 /min Respiratory Rate 2020-06-07 06:38:37 18 /min Temperature 2020-06-07 06:38:37 36.9\S\98.4 Weight 2020-06-07 06:38:37 82390.951\S\3456 Weight Measurement 2020-06-07 06:38:37 Standing Scale Method 02 Sat by Pulse 2020-06-07 06:23:19 100 /min Oximetry Body Mass Index 2020-06-07 06:23:19 35.9 Height 2020-06-07 06:23:19 165.1\S\65 Pulse Rate 2020-06-07 06:23:19 88 /min Respiratory Rate 2020-06-07 06:23:19 18 /min Temperature 2020-06-07 06:23:19 36.9\S\98.4 Weight 2020-06-07 06:23:19 49766.951\S\3456 Weight Measurement 2020-06-07 06:23:19 Standing Scale Method WEIGHT 2020-06-07 06:21:00 97.165397 kg HEIGHT 2020-06-07 06:21:00 165.1 cm Body Mass Index 2020-06-06 08:12:29 34.6 Height 2020-06-06 08:12:29 165.1\S\65 Weight 2020-06-06 08:12:29 36309.213\S\3328 WEIGHT 2020-05-30 12:22:00 94.371815 kg HEIGHT 2020-05-30 12:22:00 165.1 cm Procedures This patient has no known procedures. Plan of Care Planned Activity Planned Date Details Comments Source Future Scheduled 2022-12-01 [facility]01 (#1) [code = COVID-19 VACCINE (#1)] Future Scheduled 2022-12-01 [facility] 06[facility]01 malignant neoplasm of cervix (procedure) [code = 494438489] Future Scheduled 2022-12-01 BREAST [facility]CER [facility] Test 06:38:01 SCREENING [code = BREAST CANCER SCREENING] Future Scheduled 2022-12-01 INFLUENZA VACCINE [facility] Test 06:38:01 [code = INFLUENZA VACCINE] Future Scheduled 2022-06-09 [facility] 18:49:40 (#1) [code = COVID-19 VACCINE (#1)] Future Scheduled 2022-06-09 [facility]atitis C [facility] 18:49:40 screening (procedure) [code = 977482586] Future Scheduled 2022-06-09 [facility] Test 18:49:40 malignant neoplasm of cervix (procedure) [code = 554030811] Future Scheduled 2022-06-09 [facility]CER [facility] Test 18:49:40 SCREENING [code = BREAST CANCER SCREENING] Future Scheduled 2022-06-09 INFLUENZA VACCINE [facility] Test 18:49:40 [code = INFLUENZA VACCINE] Encounters Start End Encounter Admission Attending Care Care Encounter Source Date/Time Date/Time Type Type Clinicians Facility Department ID 2020-05-09 Inpatient Elective Wiwilner, [facility] [id number] [facility] 10:45:00 [facility] 65 2020-05-09 Inpatient Elective Wijay, [facility] [id number] [facility] 08:00:00 [facility] 19 2020-04-27 Inpatient Wiwilner, [facility] [id number] S t. 15:10:00 [facility] 2020-09-09 2020-09-09 Outpatient [facility] [id number] Univers 13:45:00 13:45:00 ity [facility] 2020-08-19 2020-08-19 Outpatient [facility] [id number] Univers 13:10:00 13:10:00 [facility] 2020-06-07 2020-06-07 Outpatient Wijay, [facility] [id number] [facility] 09:15:00 09:15:00 [facility] 87 2020-06-07 2020-06-07 Outpatient [facility] [id number] [facility] 05:03:00 05:03:00 87 2020-06-07 2020-06-07 Outpatient Wijay, [facility] [id number] [facility] 03:00:00 03:00:00 [facility] 37 2020-06-02 2020-06-02 Laboratory Lab, Adc Fam Pob I [facility] [id number] Univers 09:01:19 09:21:19 Only Charlee Tipton [facility] [id number] [facility] [id number] Gavin as Profmalinaio [id number] [address] 2020-06-02 2020-06-02 Outpatient R SAEED [facility] [id number] Univers 09:00:00 09:00:[address] [facility] 2020-05-30 2020-05-30 Outpatient Elective Wijay, [facility] [id number] [facility] 11:57:00 11:57:00 Nandhika 04 2020-05-30 2020-05-30 Outpatient [facility] [id number] [facility] 11:57:00 11:57:00 04 2020-05-01 2020-05-01 Outpatient Elective Wijay, [facility] [id number] [facility] 13:21:00 13:21:00 Nandhika 21 2020-05-01 2020-05-01 Outpatient [facility] [id number] [facility] 13:21:00 13:21:00 21 2020-02-01 2020-02-01 Telephone Doctor ENEDELIA [id number] [facility] 00:00:00 00:00:00 Unassigned, POLLY [id number] ity of [facility] [id number] Gavin as [id number] [address] 2020-01-28 2020-01-28 Laboratory Lab, Adc Fam Pob I [facility] 1.2. [id number] Univers 15:52:01 16:12:01 Only Charlee Tipton [employer] [id number] ity of [place] [id number] Gavin as Professio [id number] [address] One 2020-01-28 2020-01-28 Outpatient R [facility] [id number] Univers 15:40:00 15:40:00 ity of [facility] 2020-01-25 2020-01-25 Urgent Pob1, Acute Care Clinic [facility] 1. [id number] Univers 15:54:24 16:14:24 Care Charlee Tipton [employer] [id number] ity of [place] [id number] Gavin as Professio [id number] [address] One 2020-01-25 2020-01-25 Outpatient R SAEED [facility] [id number] Univers 16:00:00 16:00:00 CHARLEE ity [facility] 2020-01-25 2020-01-25 Letter Doctor ENEDELIA [id number] Univers 00:00:00 00:00:00 (Out) Unassigned, POLLY [id number] ity of [place] [facility] [id number] Gavin as [id number] [address] 2016-11-19 2016-11-19 Outpatient MHIE MHIE [id number] [facility]oria 10:20:00 10:20:00 08 cortney Asencio 2016-11-19 2016-11-19 Outpatient MHIE MHIE [id number] [facility] 10:20:00 10:20:00 08 cortney Asencio 2016-11-05 2016-11-05 Outpatient MHIE MHIE [id number] [facility] 08:00:00 08:00:00 07 cortney Asencio 2016-11-05 2016-11-05 Outpatient MHIE MHIE [id number] [facility] 08:00:00 08:00:00 07 cortney Asencio 2016-08-14 2016-08-14 Outpatient MHIE MHIE [id number] [facility] 08:30:00 08:30:00 06 cortney Asencio 2016-08-14 2016-08-14 Outpatient MHIE MHIE [id number] [facility] 08:30:00 08:30:00 06 cortney Asencio 2015-09-29 2015-09-29 Outpatient MHIE MHIE [id number] [facility] 10:00:00 10:00:00 05 cortney Asencio 2015-09-29 2015-09-29 Outpatient MHIE MHIE [id number] [facility] 10:00:00 10:00:00 03 cortney Asencio 2015-09-29 2015-09-29 Outpatient MHIE MHIE [id number] [facility] 10:00:00 10:00:00 03 cortney Asencio 2015-09-29 2015-09-29 Outpatient MHIE MHIE [id number] [facility] 10:00:00 10:00:00 05 cortney Asencio 2015-09-20 2015-09-20 Outpatient MHIE MHIE [id number] [facility] 13:00:00 13:00:00 04 cortney Asencio 2015-09-20 2015-09-20 Outpatient MHIE MHIE [id number] [facility] 13:00:00 13:00:00 04 cortney Asencio 2015-08-18 2015-08-18 Outpatient MHIE MHIE [id number] [facility] 10:00:00 10:00:00 02 cortney Asencio 2015-08-18 2015-08-18 Outpatient KWABENA YUAN [id number] [facility] 10:00:00 10:00:00 02 cortney Asencio 2015-06-20 2015-06-20 Outpatient KWABENA UYAN [id number] [facility] 14:00:00 14:00: cortney Asencio 2015-06-20 2015-06-20 Outpatient JAGJIT YUAN [id number] [facility] 14:00:00 14:00: cortney Asencio Results Test Description Test Time Test Comments Results Result Comments Source HCG, Urine Qual (LAB) 2020-06-07 06:30:00 Test Item Value Reference Range Interpretation Comme nts HCG, Urine, Qual (test code = HCGU) Negative Negative Complete Blood Count Auto [id number] 12:25:00 Test Item Value Reference Range Interpretation [...] code = NRBCP) 0 % Basic Metabolic [id number] 12:25:00 Test Item Value Reference Range Interpretation [...] mg/dL 8.3-10.6 N Complete Blood Count Auto [id number] 14:15:00 Test Item Value Reference Range Interpretation [...] 3/uL 0.00-0.21 N = BA#) Basic Metabolic [id number] 14:15:00 Test Item Value Reference Range Interpretation [...]
[2022-12-15] MEDS ORDERED: HYDROCODONE/APAP 10/325 TAB ONE (18:51)
--- NOTE | 2022-12-15 19:09 | RAD REPORT ---
EXAM DESCRIPTION: RAD - Lumbar Spine 3 Views - 12/15/2022 7:00 pm CLINICAL HISTORY: Back pain FINDINGS: No fracture or dislocation is seen. Sacralization L5 Minimal spondylosis lumbar spine
--- NOTE | 2022-12-15 19:11 | RAD REPORT ---
EXAM DESCRIPTION: RADSacrum And Coccyx12/15/2022 7:00 pm CLINICAL HISTORY: Back pain status post fall FINDINGS: No fracture is seen
--- NOTE | 2022-12-15 19:16 | ER ---
Nurse's Notes [facility] Name: Anastacia Adorno Age: 42 yrs Sex: Female : 1980 Arrival Date: 12/15/2022 Time: 17:58 Bed 11 Private MD: Diagnosis: Low back pain;Fall on same level from slipping, tripping and stumbling without subsequent striking against object Presentation: 12/15 18:09 Chief complaint: Patient states: fell getting out of pool, landed on buttocks, ko1 complaining of coccyx and sacral pain. Care prior to arrival: Medication(s) given: Motrin, 600 mg. Mechanism of Injury: Fall from standing position. Trauma event details: Injury occurred in the [facility], Injury occurred: at home. Injury occurred: December 15, 2022 Injury occurred at: 17:00. 18:09 Acuity: DAYANA 3 ko1 18:09 Method Of Arrival: Wheelchair ko1 19:20 Coronavirus screen: Vaccine status:. Ebola Screen: No symptoms or risks identified at [facility] this time. Initial Sepsis Screen: Does the patient meet any 2 criteria? No. Patient's initial sepsis screen is negative. Does the patient have a suspected source of infection? No. Patient's initial sepsis screen is negative. Risk Assessment: Do you want to hurt yourself or someone else? Patient reports no desire to harm self or others. Onset of symptoms was December 15, 2022. 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 - Social history:: Smoking status: Patient denies any tobacco usage or history of. - Immunization history: Last tetanus immunization: - up to date. Screenin:09 Abuse screen: Denies threats or abuse. Denies injuries from another. Tuberculosis ko1 screening: No symptoms or risk factors identified. 19:21 [facility] ED Fall Risk Assessment (Adult) History of falling in the last 3 months, kd3 including since admission. Nutritional screening: No deficits noted. Primary Survey: 18:09 NO uncontrolled hemorrhage observed. A: The client is awake and alert. The airway is ko1 patent. The client is alert. Airway: patent. Breathing/Chest: Spontaneous respiratory effort, equal unlabored respirations, breath sounds clear bilaterally, regular pattern, symmetrical chest rise and fall. Circulation: No external hemorrhage present. Regular and strong central pulse, skin warm/dry/normal color. Disability Pupils are equal, round, reactive to light and accommodation. Client is alert. Exposure/Environment: There is no evidence of uncontrolled external bleeding. Obvious injury(ies) are noted at this time: coccyx pain. 19:20 Reassessment Breathing: Spontaneous respiratory effort, equal unlabored respirations, kd3 breath sounds clear bilaterally, regular pattern with symmetrical chest rise and fall. Assessment: 18:09 General: Appears in no apparent distress. uncomfortable, Behavior is calm, cooperative, ko1 appropriate for age. Pain: Complains of pain in coccyx. Vital Signs: 18:09 BP 113 / 59; Pulse 115; Resp 18; Temp 98; Pulse Ox 100% ; Weight 70.76 kg; Height 5 ft. ko1 3 in. ; Pain 9/10; 19:22 Pulse 102; Resp 16; Pulse Ox 99% on R/A; kd3 18:09 Body Mass Index 27.63 (70.76 kg, 160.02 cm) ko1 18:09 Pain Scale: Adult ko1 [place] Coma Score: 18:09 Eye Response: spontaneous(4). Motor Response: obeys commands(6). Verbal Response: ko1 oriented(5). Total: 15. Trauma Score (Adult): 18:09 Eye Response: spontaneous(1); Verbal Response: oriented(1); Motor Response: obeys ko1 commands(2); Systolic BP: > 89 mm Hg(4); Respiratory Rate: 10 to 29 per min(4); Lise Score: 15; Trauma Score: 12 ED Course: 18:00 Patient arrived in ED. rg4 18:04 Gricel Tolliver FNP-C is PHCP. kb 18:04 Serafin Hernandez MD is Attending Physician. kb 18:09 Patient has correct armband on for positive identification. ko1 18:09 Patient maintains SpO2 saturation greater than 95% on room air. ko1 18:10 Triage completed. ko1 18:13 Aileen Reece, RN is Primary Nurse. ko1 18:57 Patient placed in an exam room, on a stretcher, Patient notified of wait time. ko1 19:02 Sacrum And Coccyx XRAY In Process Unspecified. EDMS 19:02 Lumbar Spine (3 Views) XRAY In Process Unspecified. EDMS 19:20 No provider procedures requiring assistance completed. Patient did not have IV access kd3 during this emergency room visit. 19:21 Thermoregulation: warm blanket given to patient. kd3 Administered Medications: 18:44 Drug: Julian PO 10 mg-325 mg 1 tabs Route: PO; ko1 19:21 Follow up: Response: No adverse reaction; Pain is decreased kd3 Medication: 19:21 VIS not applicable for this client. kd3 Intake: 19:21 PO: 100ml (Water); Total: 100ml. kd3 Outcome: 19:15 Discharge ordered by MD. kb 19:20 Discharged to home via wheelchair, with family. kd3 19:20 Condition: stable 19:20 Discharge instructions given to patient, family, Instructed on discharge instructions, follow up and referral plans. medication usage, Demonstrated understanding of instructions, follow-up care, medications, Prescriptions given X 2. 19:21 Patient's length of stay was not longer than 2 hours. kd3 19:22 Patient left the ED. kd3 Signatures: Dispatcher [employer] EDMS Gricel Tolliver FNP-C FNP-Rozina Quiñones rg4 Ifeoma Byrne RN RN kd3 Aileen Reece, RN RN ko1
--- NOTE | 2022-12-15 19:16 | EDPHYS ---
Physician Documentation [facility] Name: Anastacia Adorno Age: 42 yrs Sex: Female : 1980 Arrival Date: 12/15/2022 Time: 17:58 Bed 11 Private MD: ED Physician Serafin Hernandez HPI: 12/15 19:32 This 42 yrs old Female presents to ER via Wheelchair with complaints of Fall kb Injury. 19:32 Details of fall: The patient fell from an upright position, slipped when she got out of the pool. Onset: The symptoms/episode began/occurred just prior to arrival. Associated injuries: The patient sustained injury to the low back, pain, pain with movement. Severity of symptoms: At their worst the symptoms were moderate, in the emergency department the symptoms are unchanged. The patient has not experienced similar symptoms in the past. The patient has not recently seen a physician. 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 - Social history:: Smoking status: Patient denies any tobacco usage or history of. - Immunization history: Last tetanus immunization: - up to date. ROS: 19:30 Constitutional: Negative for fever, chills, and weight loss. kb 19:30 Back: Positive for pain at rest, pain with movement, of the sacrum. 19:30 All other systems are negative. Exam: 19:30 Constitutional: This is a well developed, well nourished patient who is awake, alert, kb and in no acute distress. Head/Face: Normocephalic, atraumatic. ENT: Moist Mucous membranes Respiratory: Respirations even and unlabored. No increased work of breathing. Talking in full sentences Skin: Warm, dry with normal turgor. Normal color. MS/ Extremity: Pulses equal, no cyanosis. Neurovascular intact. Full, normal range of motion. Neuro: Awake and alert, GCS 15, oriented to person, place, time, and situation. Moves all extremities. Normal gait. 19:30 Back: pain, that is moderate, ROM is painful, normal spinal alignment noted, vertebral tenderness, is appreciated at lumbar spine and sacrum. Vital Signs: 18:09 BP 113 / 59; Pulse 115; Resp 18; Temp 98; Pulse Ox 100% ; Weight 70.76 kg; Height 5 ft. ko1 3 in. ; Pain 9/10; 19:22 Pulse 102; Resp 16; Pulse Ox 99% on R/A; kd3 18:09 Body Mass Index 27.63 (70.76 kg, 160.02 cm) ko1 18:09 Pain Scale: Adult ko1 Lise Coma Score: 18:09 Eye Response: spontaneous(4). Motor Response: obeys commands(6). Verbal Response: ko1 oriented(5). Total: 15. Trauma Score (Adult): 18:09 Eye Response: spontaneous(1); Verbal Response: oriented(1); Motor Response: obeys ko1 commands(2); Systolic BP: > 89 mm Hg(4); Respiratory Rate: 10 to 29 per min(4); Lise Score: 15; Trauma Score: 12 MDM: 18:04 Patient medically screened. kb 19:31 Differential diagnosis: contusion, fracture, strain. Data reviewed: vital signs, nurses kb notes. Counseling: I had a detailed discussion with the patient and/or guardian regarding: the historical points, exam findings, and any diagnostic results supporting the discharge/admit diagnosis, radiology results, the need for outpatient follow up, a family practitioner, to return to the emergency department if symptoms worsen or persist or if there are any questions or concerns that arise at home. 12/15 18:07 Order name: Sacrum And Coccyx XRAY; Complete Time: 19:15 kb 12/15 18:07 Order name: Lumbar Spine (3 Views) XRAY; Complete Time: 19:15 kb Administered Medications: 18:44 Drug: Bolivar PO 10 mg-325 mg 1 tabs Route: PO; ko1 19:21 Follow up: Response: No adverse reaction; Pain is decreased kd3 Disposition Summary: 12/15/22 19:15 Discharge Ordered Location: Home kb Condition: Stable kb Diagnosis - Low back pain kb - Fall on same level from slipping, tripping and stumbling without subsequent kb striking against object Followup: kb - With: Emergency Department - When: As needed - Reason: Worsening of condition Followup: kb - With: Private Physician - When: 2 - 3 days - Reason: Recheck today's complaints, Continuance of care, Re-evaluation by your physician Discharge Instructions: - Discharge Summary Sheet kb - Musculoskeletal Pain kb Forms: - Medication Reconciliation Form kb - Thank You Letter kb - Antibiotic Education kb - Prescription Opioid Use kb - [email or web address] kb Prescriptions: - Tramadol 50 mg Oral Tablet - take 1 tablet by ORAL route every 8 hours as needed; 12 tablet; Refills: 0, kb Product Selection Permitted - orphenadrine citrate 100 mg Oral Tablet Sustained Release - take 1 tablet by ORAL route 2 times per day As needed; 20 tablet; Refills: 0, kb Product Selection Permitted Signatures: Dispatcher [employer] Gricel Frank, Ifeoma Rubin, RN RN kd3 Aileen Reece RN RN ko1
[2022-12-15 19:41] VITALS: BP 113/59; TEMP 98
[2022-12-15 19:42] VITALS: O2SAT 99
== END 2022-12-15 19:22 | disposition home or self-care (01) ==
LOC: ER 17:58
DX: M54.50 Low back pain, unspecified (principal); W01.0XXA Fall on same level from slipping, tripping and stumbling without subsequent striking against object, initial encounter
CPT/HCPCS: 72100; 72220; 99284